=== PATIENT | male | born 1950 | race Caucasian/White ===

== ENCOUNTER 2023-12-21 19:09 | Emergency (ER) | payer MEDICARE, OTHER, SELFPAY ==
[2023-12-21 19:13] VITALS: BP 128/92
[2023-12-21] MEDS: ADRENALIN 0.3 MG IM (19:19)
[2023-12-21 19:20] VITALS: BMI 25.5
[2023-12-21 19:22] VITALS: BP 130/83
[2023-12-21] MEDS: BENADRYL 50 MG IV (19:23)
[2023-12-21] MEDS: DECADRON 10 MG IV (19:24)
--- NOTE | 2023-12-21 19:29 | ED.GENMED ---
History of Present Illness
General
Chief Complaint: Allergic Reaction
Source: patient
Exam Limitations: none
Time Seen by Provider: 12/21/23 19:16
Nursing documentation reviewed up to this point in time: agreed with
History of Present Illness
History of Present Illness:
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
to arrival
Past History
Past History
ED Past Medical History: Other (Anaphylaxis to bees)
Social History
Tobacco: Non-smoker
Alcohol: Occasional
Drug: None
Personal:
Living: with family
Employment: Retired
Review of Systems
Review of Systems
All Other Systems: Not applicable
Constitutional: Denies fever
EENT: Reports mouth swelling (Lip swelling); Denies mouth pain
Respiratory: Reports no symptoms; Denies cough or trouble breathing
ABD/GI: Denies abdominal pain
Musculoskeletal: Reports no symptoms
Skin: Reports other (Lip swelling)
Phy Exam
Physical Exam
Physical Exam:
Physical Exam
General: no apparent distress, not acutely ill
Neck: Moderate swelling of the left upper lip, normal-sized tongue no stridor no drooling posterior pharynx looks normal
Heart: s1/s2 regular rate and rhythm, no murmur. equal radial pulses.
Lungs: no acute respiratory distress. No wheezing
Abdomen: Nontender
Neuro: alert and oriented. no focal neurological deficits
Skin: no rash
Psychiatric: well kept. interactive and cooperative
Extremities: no edema
Course
Orders/Labs/Results
Orders:
Orders
12/21/23 19:18
Dexamethasone Sod Phosphate [Decadron] 4 mg .ROUTE .STK-MED ONE
Diphenhydramine [Benadryl] 50 mg .ROUTE .STK-MED ONE
EPINEPHrine PF [Adrenalin] 1 mg .ROUTE .STK-MED ONE
12/21/23 19:19
EPINEPHrine PF [Adrenalin] 0.3 mg IM NOW STA
Famotidine [Pepcid] 20 mg .ROUTE .STK-MED ONE
12/21/23 19:20
Dexamethasone Sod Phosphate [Decadron] 10 mg IV NOW STA
Diphenhydramine [Benadryl] 50 mg IV NOW STA
Vital Signs
Initial and Last Documented VS:
Initial Vital Signs
Temp Pulse Resp BP Pulse Ox
98.6 F 118 18 128/92 96
12/21/23 19:13 12/21/23 19:13 12/21/23 19:13 12/21/23 19:13 12/21/23 19:13
Last Documented Vital Signs
Temp Pulse Resp BP Pulse Ox
98.6 F 99 17 130/72 97
12/21/23 19:13 12/21/23 20:02 12/21/23 20:02 12/21/23 20:00 12/21/23 19:45
MDM/Problems Addressed
Differential Diagnosis Includes:
Bee sting, allergic reaction localized swelling no signs of systemic anaphylaxis at this time
MDM/Problems Addressed:
Bee sting
*Critical Care Note
Total Time (30-74mins, 75-104mins- exclusive of procedures): 12
Update Note
Update Note:
update
no systemic symptoms
suspect lip swelling is due to localized swelling from sting
will try ice
no tongue swelling
no wheeze
pt nad
9 PM patient feeling better less swelling no stridor
ED Attending Note
-
Portions of this chart may have been created with voice recognition software.� Occasional wrong word or��sound alike� substitutions may have occurred due to the inherent limitations of voice recognition software.
Discharge Plan
Departure
Date of Disposition: 12/21/23
Time of Disposition: 20:54
Patient with high blood pressure during this ER visit?: No
Condition: Good
Covid-19: Not Applicable
Discharge Problem:
Bee sting
Prescriptions:
New
epinephrine [EpiPen 2-Rashawn] 0.3 mg/0.3 mL auto-injector
0.3 mg IM Q5-15M PRN (Reason: anaphylaxis) Qty: 2 0RF
Interventions
Interventions:
*Risk Screen - Suicide Last Done: 12/21/23 19:13
*General Assessment Last Done: 12/21/23 19:13
*Neglect/Abuse Screening Last Done: 12/21/23 19:13
ED- Fall Risk Assessment Last Done: 12/21/23 19:28
ED- Cardiac Assessment Last Done: 12/21/23 19:28
ED- Pulmonary Assessment Last Done: 12/21/23 19:28
ED-Skin Assessment Last Done: 12/21/23 19:28
Discharge Date and Time
Print Language: BELARUSIAN
[2023-12-21 20:00] VITALS: BP 130/72
[2023-12-21 21:00] VITALS: BP 128/75
== END 2023-12-21 21:45 | disposition home or self-care (01) ==
LOC: EMR 19:09
PROVIDERS: EMERGENCY PHYSICIAN Emergency Medicine; FAMILY PHYSICIAN Family Medicine
DX: T63.441A Toxic effect of venom of bees, accidental (unintentional), initial encounter (principal); Z91.030 Bee allergy status
CPT/HCPCS: 99282; 96374; 96375; 96372